=== PATIENT | male | born 1995 | race African-American/Black ===

== ENCOUNTER 2017-08-01 22:07 | Emergency (ER) | payer OTHER ==
[2017-08-01] MEDS ORDERED: Lidocaine 1% w/Epinephrine 1:100K 20 ML VIAL ONE (22:17)
[2017-08-01] MEDS ORDERED: Bacitracin Zinc 1 Packet ONE (22:48)
== END 2017-08-01 22:51 | disposition home or self-care (01) ==
LOC: ERS 22:07
DX: S01.112A Laceration without foreign body of left eyelid and periocular area, initial encounter (principal); W50.0XXA Accidental hit or strike by another person, initial encounter; Y93.67 Activity, basketball
CPT/HCPCS: 12013; J2001

== ENCOUNTER 2017-08-10 13:01 | Emergency (ER) | payer OTHER | END 2017-08-10 13:28 | disposition home or self-care (01) | LOC: ERS 13:01 | DX: S01.112D Laceration without foreign body of left eyelid and periocular area, subsequent encounter (principal) ==

== ENCOUNTER 2018-11-05 14:57 | Outpatient (CLI) | payer OTHER ==
--- NOTE | 2018-12-04 14:34 | RAD ---
XR Foot Rt 3 View STANDARD History: Foot pain Comparison: Foot radiograph 2012 Findings: No acute fracture or malalignment. Os trigonum is present. Normal Lisfranc interval. Impression: No acute osseous abnormality.
--- NOTE | 2018-12-04 14:36 | RAD ---
THREE VIEWS RIGHT ANKLE: History: Right ankle and foot pain. Comparison: None FINDINGS: The ankle mortise is congruent. There is no fracture, dislocation, or other osseous abnormality invol ving the right ankle. There is subcutaneous soft tissue swelling seen at the lateral aspect of the an kle as well as anteriorly. IMPRESSION: Subcutaneous soft tissue swelling without evidence of a fracture involving the right ankle. POS: [facility] [place]
== END 2018-11-05 14:58 | disposition home or self-care (01) ==
LOC: BICRAD 14:57
PROVIDERS: ATTEND Nurse Practitioner Family
DX: M25.571 Pain in right ankle and joints of right foot (principal); M79.671 Pain in right foot; M79.89 Other specified soft tissue disorders

== ENCOUNTER 2020-12-14 14:03 | Outpatient (CLI) | payer OTHER, SELFPAY | END 2020-12-14 14:04 | disposition home or self-care (01) | LOC: SCSMRI 14:03 | PROVIDERS: ATTEND Orthopaedic Surgery | DX: M23.91 Unspecified internal derangement of right knee (principal); S83.241A Other tear of medial meniscus, current injury, right knee, initial encounter; S83.281A Other tear of lateral meniscus, current injury, right knee, initial encounter; M25.461 Effusion, right knee; M25.861 Other specified joint disorders, right knee ==